=== PATIENT | female | born 1980 | race Caucasian/White ===

== ENCOUNTER 2017-11-10 12:25 | Emergency (ER) | payer SELFPAY ==
--- NOTE | 2017-11-10 14:14 | EDPHYS ---
Physician Documentation [facility] Name: Tyra Stewart Age: 37 yrs Sex: Female : 1980 Arrival Date: 11/10/2017 Time: 12:28 Bed 9 Private MD: ED Physician Dandre Kramer HPI: 11/10 14:07 This 37 yrs old Female presents to ER via Ambulatory with complaints of Eye vanna Swelling. 14:07 The patient is experiencing pain, redness. Onset: The symptoms/episode began/occurred 3 vanna day(s) ago. Duration: the symptoms are continuous. Aggravated by blinking, closing eye, pressure, rubbing. Associated signs and symptoms: Pertinent positives: None. Patient does not utilize any form of vision correction. Severity of symptoms: At their worst the symptoms were mild in the emergency department the symptoms are unchanged. The patient has not experienced similar symptoms in the past. 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 - Social history:: Smoking status: Patient uses tobacco products, smokes one pack cigarettes per day. - Ebola Screening: : No symptoms or risks identified at this time. ROS: 14:07 Constitutional: Negative for fever, chills, and weight loss, ENT: Negative for injury, vanna pain, and discharge, Neck: Negative for injury, pain, and swelling, Cardiovascular: Negative for chest pain, palpitations, and edema, Respiratory: Negative for shortness of breath, cough, wheezing, and pleuritic chest pain, Abdomen/GI: Negative for abdominal pain, nausea, vomiting, diarrhea, and constipation, Back: Negative for injury and pain, : Negative for injury, bleeding, discharge, and swelling, MS/Extremity: Negative for injury and deformity, Skin: Negative for injury, rash, and discoloration, Neuro: Negative for headache, weakness, numbness, tingling, and seizure. 14:07 Eyes: Positive for pain, redness, of the right upper eyelid and right eye. Exam: 14:07 Constitutional: This is a well developed, well nourished patient who is awake, alert, vanna and in no acute distress. Head/Face: Normocephalic, atraumatic. ENT: Nares patent. No nasal discharge, no septal abnormalities noted. Tympanic membranes are normal and external auditory canals are clear. Oropharynx with no redness, swelling, or masses, exudates, or evidence of obstruction, uvula midline. Mucous membranes moist. Neck: Trachea midline, no thyromegaly or masses palpated, and no cervical lymphadenopathy. Supple, full range of motion without nuchal rigidity, or vertebral point tenderness. No Meningismus. Chest/axilla: Normal chest wall appearance and motion. Nontender with no deformity. No lesions are appreciated. Cardiovascular: Regular rate and rhythm with a normal S1 and S2. No gallops, murmurs, or rubs. Normal PMI, no JVD. No pulse deficits. Respiratory: Lungs have equal breath sounds bilaterally, clear to auscultation and percussion. No rales, rhonchi or wheezes noted. No increased work of breathing, no retractions or nasal flaring. Abdomen/GI: Soft, non-tender, with normal bowel sounds. No distension or tympany. No guarding or rebound. No evidence of tenderness throughout. Back: No spinal tenderness. No costovertebral tenderness. Full range of motion. MS/ Extremity: Pulses equal, no cyanosis. Neurovascular intact. Full, normal range of motion. Neuro: Awake and alert, GCS 15, oriented to person, place, time, and situation. Cranial nerves II-XII grossly intact. Motor strength 5/5 in all extremities. Sensory grossly intact. Cerebellar exam normal. Normal gait. Psych: Awake, alert, with orientation to person, place and time. Behavior, mood, and affect are within normal limits. 14:07 Skin: abscess, that is small, cellulitis, that is mild, induration, that is mild is noted. Vital Signs: 12:39 BP 120 / 75; Pulse 96; Resp 18; Temp 98.6; Pulse Ox 97% ; Weight 81.65 kg; Height 5 ft. sv 5 in. (165.10 cm); Pain 5/10; 12:39 Body Mass Index 29.95 (81.65 kg, 165.10 cm) sv MDM: 13:41 Patient medically screened. [facility] 14:11 Data reviewed: vital signs, nurses notes. [facility] Administered Medications: 14:14 Drug: Bactrim (160 mg-800 mg (DS) 1 tablet Route: PO; 14:25 Follow up: Response: Medication administered at discharge. Disposition: 11/10/17 14:13 Discharged to Home. Impression: Cellulitis of face - right upper lid, stye. - Condition is Stable. - Discharge Instructions: Cellulitis, Stye, Cellulitis, [id number]. - Prescriptions for Tobrex 0.3 % Ophthalmic ointment - apply 1 inch ribbon by OPHTHALMIC route 4 times per day; 3.5 gram. Ibuprofen 600 mg Oral Tablet - take 1 tablet by ORAL route every 8 hours As needed take with food; 21 tablet. Bactrim DS 800- 160 mg Oral Tablet - take 1 tablet by ORAL route every 12 hours for 10 days; 20 tablet. - Work release form, Medication Reconciliation Form, Thank You Letter, Antibiotic Education, Prescription Opioid Use form. - Follow up: Private Physician; When: 2 - 3 days; Reason: Recheck today's complaints, Continuance of care, Re-evaluation by your physician. Follow up: Latrell Morales MD; When: 2 - 3 days; Reason: Recheck today's complaints, Re-evaluation by your physician. - Problem is new. - Symptoms have improved. Signatures: Ying Echavarria RN RN sv Myers, Amanda, RN RN aj Anderson, Corey, MD MD [facility] Corrections: (The following items were deleted from the chart) 14:26 14:13 11/10/2017 14:13 Discharged to Home. Impression: Cellulitis of face - right upper aj lid, stye. Condition is Stable. Forms are Medication Reconciliation Form, Thank You Letter, Antibiotic Education, Prescription Opioid Use. Follow up: Private Physician; When: 2 - 3 days; Reason: Recheck today's complaints, Continuance of care, Re-evaluation by your physician. Follow up: Latrell Morales; When: 2 - 3 days; Reason: Recheck today's complaints, Re-evaluation by your physician. Problem is new. Symptoms have improved. [facility]
--- NOTE | 2017-11-10 14:14 | ER ---
Nurse's Notes [facility] Name: Tyra Stewart Age: 37 yrs Sex: Female : 1980 Arrival Date: 11/10/2017 Time: 12:28 Bed 9 Private MD: Diagnosis: Cellulitis of face-right upper lid, stye Presentation: 11/10 12:38 Presenting complaint: Patient states: right eye swelling and itching started a couple sv of days ago. Pt reports "pussy" drainage. Transition of care: patient was not received from another setting of care. Onset of symptoms was November 08, 2017. Care prior to arrival: None. 12:38 Method Of Arrival: Ambulatory sv 12:38 Acuity: RIKA 3 sv 14:24 Risk Assessment: Do you want to hurt yourself or someone else? Patient reports no aj desire to harm self or others. Initial Sepsis Screen: Does the patient meet any 2 criteria? No. Patient's initial sepsis screen is negative. Does the patient have a suspected source of infection? No. Patient's initial sepsis screen is negative. Triage Assessment: 12:38 General: Appears uncomfortable, Behavior is calm, cooperative, appropriate for age. sv Pain: Complains of pain in right eye Pain currently is 5 out of 10 on a pain scale. EENT: Lid(s) swelling noted to right eyelid. Reports right eye drainage. Neuro: Level of Consciousness is awake, alert, obeys commands, Oriented to person, place, time, situation, Moves all extremities. Full function Gait is steady. Respiratory: Respiratory effort is even, unlabored, Respiratory pattern is regular, symmetrical. GI: No signs and/or symptoms were reported involving the gastrointestinal system. : No signs and/or symptoms were reported regarding the genitourinary system. Derm: Skin is normal. Musculoskeletal: No signs and/or symptoms reported regarding the musculoskeletal system. 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 - Social history:: Smoking status: Patient uses tobacco products, smokes one pack cigarettes per day. - Ebola Screening: : No symptoms or risks identified at this time. Screenin:33 Abuse screen: Denies threats or abuse. Denies injuries from another. Nutritional aj screening: No deficits noted. Tuberculosis screening: No symptoms or risk factors identified. Fall Risk None identified. Assessment: 13:33 General: Appears in no apparent distress. comfortable, Behavior is calm, cooperative, aj appropriate for age. General: Smells of Body dirt. Pain: Denies pain. Neuro: Level of Consciousness is awake, alert, obeys commands, Oriented to person, place, time, situation, Appropriate for age. Respiratory: Airway is patent Respiratory effort is even, unlabored, Respiratory pattern is regular, symmetrical. EENT: Lid(s) w/ stye noted right upper eyelid. Derm: Skin is intact, is healthy with good turgor, Skin is pink, warm \\T\\ dry. normal. Vital Signs: 12:39 BP 120 / 75; Pulse 96; Resp 18; Temp 98.6; Pulse Ox 97% ; Weight 81.65 kg; Height 5 ft. sv 5 in. (165.10 cm); Pain 5/10; 12:39 Body Mass Index 29.95 (81.65 kg, 165.10 cm) sv ED Course: 12:28 Patient arrived in ED. as 12:39 Triage completed. sv 12:40 Arm band placed on right wrist. Patient placed in waiting room, Patient notified of sv wait time. 13:17 Yaquelin Pringle, RN is Primary Nurse. aj 13:33 Patient has correct armband on for positive identification. aj 13:33 No provider procedures requiring assistance completed. Patient did not have IV access aj during this emergency room visit. 13:41 Dandre Kramer MD is Attending Physician. vanna 14:12 Latrell Morales MD is Referral Physician. vanna Administered Medications: 14:14 Drug: Bactrim (160 mg-800 mg (DS) 1 tablet Route: PO; aj 14:25 Follow up: Response: Medication administered at discharge. aj Outcome: 14:13 Discharge ordered by . vanna 14:23 Discharged to home ambulatory. aj 14:23 Condition: good 14:23 Discharge instructions given to patient, Instructed on discharge instructions, follow up and referral plans. medication usage, Demonstrated understanding of instructions, follow-up care, medications, Prescriptions given X 3. 14:26 Patient left the ED. aj Signatures: Ying Echavarria RN RN sv Myers, Amanda, RN RN aj Anderson, Corey, MD MD cha Martinez, Amelia as Corrections: (The following items were deleted from the chart) 12:41 12:39 BP 120 / 75; Pulse 96bpm; Resp 18bpm; Pulse Ox 97%; 81.65 kg; Height 5 ft. 5 in.; sv BMI: 29.9; Pain 5/10; sv 12:53 12:40 Arm band placed on right wrist. sv sv 13:05 12:38 Acuity: RIKA 4 sv sv
[2017-11-10] MEDS ORDERED: SMZ./TMP. 800/160 MG TABLET ONE (14:15)
== END 2017-11-10 14:26 | disposition home or self-care (01) ==
LOC: ER 12:25
DX: H00.031 Abscess of right upper eyelid (principal); F17.210 Nicotine dependence, cigarettes, uncomplicated
CPT/HCPCS: 99283